=== PATIENT | female | born 1995 | race Two or more races ===

== ENCOUNTER 2018-05-20 18:52 | Emergency (ER) | payer BC ==
[2018-05-20] MEDS ORDERED: Dexamethasone 4 mg/ml Vial ONE (20:38)
== END 2018-05-20 21:05 | disposition home or self-care (01) ==
LOC: ERS 18:52
DX: R06.00 Dyspnea, unspecified (principal); K21.9 Gastro-esophageal reflux disease without esophagitis
CPT/HCPCS: 96372; J1100